=== PATIENT | female | born 1955 | race Caucasian/White ===

== ENCOUNTER 2017-04-06 11:18 | Day surgery (SDC) | payer BC ==
[2017-04-01 10:30] LABS: BASOPHILS 0 %; EOSINOPHILS 0.2 %; EOSINOPHILS ABSOLUTE 0.01 10/3/uL (0.0-0.53); HEMOGLOBIN 11.4 g/dL (12.0-16.0); IMMATURE GRANULOCYTES 0.2 %; IMMATURE GRANULOCYTES ABSOLUTE 0.01 10/3/uL (0.0-0.11); LYMPHOCYTES 7.3 %; LYMPHOCYTES ABSOLUTE 0.34 10/3/uL (0.67-4.30); MEAN CORPUS HGB CONC 33.6 g/dL (32.0-36.0); MEAN CORPUSCULAR VOLUME 92.1 fL (80-100); MEAN PLATELET VOLUME 9.1 fL (9.2-13.0); MONOCYTES 10.3 %; MONOCYTES ABSOLUTE 0.48 10/3/uL (0.21-1.20); NEUTROPHILS ABSOLUTE 3.81 10/3/uL (2.02-8.40); PLATELET COUNT 270 10/3/uL (150-400); RBC DISTRIBUTION WIDTH 15.2 % (12.0-16.0); RED CELL COUNT 3.68 10/6/uL (4.0-5.6); WHITE BLOOD CELLS 4.7 10/3/uL (4.5-10.5)
[2017-04-01 10:36] LABS: HEMATOCRIT 33.9 % (36.0-48.0); MANUAL DIFF NO %
[2017-04-01 10:46] LABS: A/G RATIO 0.8 (0.7-1.9); ALBUMIN 2.4 G/DL (3.5-5.0); ALKALINE PHOSPHATASE 303 U/L (45-117); BUN (BLOOD UREA NITROGEN) 27 MG/DL (6-23); CALCIUM, SERUM 8.4 MG/DL (8.5-10.4); CHLORIDE, SERUM 96 MMOL/L (96-112); CO2 (CARBON DIOXIDE) 28 MMOL/L (24-34); CREATININE 0.69 MG/DL (0.55-1.02); GFR AFRICAN AMERICAN 110 ML/MIN (>=60); GFR NON AFRICAN AMERICAN 95 ML/MIN (>=60); GLOBULIN 3.2 G/DL (2.5-4.1); GLUCOSE, SERUM 107 MG/DL (60-99); POTASSIUM, SERUM 4.9 MMOL/L (3.5-5.3); SGOT(AST) 85 U/L (5-40); SGPT(ALT) 99 U/L (5-65); SODIUM, SERUM 130 MMOL/L (135-148); TOTAL BILIRUBIN 0.8 MG/DL (0-1.2); TOTAL PROTEIN 5.6 G/DL (6.0-8.5)
[~2017-04-06] VITALS: Ht 165.1 cm; Wt 112.9 kg
--- NOTE | ~2017-04-06 | OP ---
Record Of Operation [facility] [address] [place]. [address] NAME: TARA MARTÍNEZ : 57 STATUS : REG [facility]#: [id number] AGE: 61 ADM/REG DATE : 04/06/17 MR#: [id number] REPORT SERV DATE: 04/06/17 DICTATED BY: SARAH CAM DATE: 04/06/17 REPORT STATUS : Draft TRANSCRIBED BY: MODL DATE: 04/06/17 DATE OF PROCEDURE: 04/06/2017 PREOPERATIVE DIAGNOSIS: Left ureteral obstruction. POSTOPERATIVE DIAGNOSIS: Left ureteral obstruction, resolved. PROCEDURE PERFORMED: Cystoscopy with bilateral retrograde pyelogram. ANESTHESIA: General. COMPLICATIONS: None. FINDINGS: Mild left caliectasis. No obstruction. All contrast drained promptly from the upper collecting system consistent with a previous obstruction that had resolved. INDICATIONS: Ms. Martínez is a 61-year-old with metastatic gynecologic cancer. She has an upper retroperitoneal mass on the left. Most recent CT scan showed moderate to severe left hydronephrosis. She has opted for ureteral stenting. TECHNIQUE: Informed consent obtained. She received Levaquin intravenously. She was brought to the operating room. General endotracheal anesthesia was administered. The genitals and perineum were prepped and draped in the lithotomy position. Rigid cystoscopy was performed. The urethra was normal. There was erythema on the posterior bladder wall. The left ureter was cannulated. Retrograde pyelogram was performed. There was smooth left ureteral contour. No evidence of hydroureter and no UPJ obstruction. Renal pelvis was nondilated. The left renal calices were mildly splayed. There is a question of whether there had been a peripelvic cyst on the left. There was mild caliectasis. All contrast drained promptly on the left. Right retrograde pyelogram was performed. There was smooth right ureteral contour with no hydronephrosis, hydroureter, and filling defect. All contrast drained promptly on the right. Right kidney was displaced inferiorly suggesting hepatomegaly. I drained the bladder. Almost entirely all the contrast drained the upper tract for five minutes. I did not think the ureteral stenting was appropriate. I removed the cystoscope. She will follow up with me as needed. It is unclear if this was right or left hydronephrosis that resolved spontaneously, or left parapelvic renal cyst that mimicked hydronephrosis. [facility] Sarah Cam M.D. Record Of Operation [facility] [id number] [place]. [address] NAME: TARA MARTÍNEZ : 57 STATUS : REG [facility] PAT#: [id number] AGE: 61 ADM/REG DATE : 04/06/17 MR#: [id number] REPORT SERV DATE: 04/06/17 DICTATED BY: SARAH CAM DATE: 04/06/17 REPORT STATUS : Draft TRANSCRIBED BY: SALO DATE: 04/06/17 / [id number] CC: Janey Overton M.D.
[~2017-04-06 11:18] MED LIST: ACET500CAP PO; BEN25 PO; DEXA5B PO; DIL4TAB PO; EXCEDRIN EXTRA1 EACH PO; LEVOTHYROXIN175 MCG PO; LEXAPRO10 PO; PENNSAID; RITALIN5 PO; SYMAX-SL0.125 MG PO; SYNTHROID175 MCG PO; TIMOPTIC0.5 % OPH; ULTRAM50 PO; XALAT OPH
== END 2017-04-06 16:06 | disposition home or self-care (01) ==
LOC: SDC 11:18
PROVIDERS: Urology
PROC: BT14YZZ Fluoroscopy of Kidneys, Ureters and Bladder using Other Contrast (ICD-10-PCS; principal; 2017-04-06 12:45)
DX: N28.89 Other specified disorders of kidney and ureter (principal); E03.9 Hypothyroidism, unspecified; E66.9 Obesity, unspecified; F32.9 Major depressive disorder, single episode, unspecified; M19.90 Unspecified osteoarthritis, unspecified site; Z79.899 Other long term (current) drug therapy; Z90.710 Acquired absence of both cervix and uterus; Z98.51 Tubal ligation status; Z90.49 Acquired absence of other specified parts of digestive tract; Z68.41 Body mass index [BMI] 40.0-44.9, adult
CPT/HCPCS: 74420; 80053; 85025; 93005; C1769; J0330; J1956; J2250; J2270; J2405; J2710; J3010; Q9967